=== PATIENT | female | born 1985 | race Caucasian/White ===

== ENCOUNTER → 2020-08-10 11:31 | Outpatient (CLI) | payer BC, SELFPAY ==
--- NOTE | 2020-08-10 11:34 | DI.RAD.S_ITS ---
PROCEDURE: XR HAND RT MIN 3V INDICATIONS: finger slammed in car door TECHNIQUE: 3 views of the hand(s) acquired. COMPARISON: None. FINDINGS: Bones: No fractures or dislocations. Carpal bones are normally aligned. No suspicious bony lesions. Soft tissues: No suspicious soft tissue calcifications. IMPRESSION: No evidence acute bony abnormality of the right hand Dictated by: Angel Moore M.D. on 08/10/2020 at 11:52 Approved by: Angel Moore M.D. on 08/10/2020 at 11:53
== END ==
PROVIDERS: PCP Family Medicine; Referring Provider Student in an Organized Health Care Education/Training Program; Visit Provider Student in an Organized Health Care Education/Training Program
DX: S69.90XA Unspecified injury of unspecified wrist, hand and finger(s), initial encounter (principal)
CPT/HCPCS: 73130